=== PATIENT | female | born 1995 | race Caucasian/White ===

== ENCOUNTER 2023-05-25 18:57 | Emergency (ER) | payer MEDICAID ==
[2023-05-25 19:50] LABS: BASOPHILS % (AUTO) 0.4 %; EOSINOPHILS # (AUTO) 0.2 10^3/uL (0.0-0.7); EOSINOPHILS % (AUTO) 4.2 %; HGB - HEMOGLOBIN 12.7 g/dL (12.0-16.0); LYMPHOCYTES # (AUTO) 2.2 10^3/uL (1.5-3.5); LYMPHOCYTES % (AUTO) 39.4 %; MEAN CORPUSCULAR HEMOGLOBIN 28.5 pg (27.0-31.0); MEAN CORPUSCULAR HGB CONC 32.6 g/dL (32.0-36.0); MEAN CORPUSCULAR VOLUME 87.4 fL (81.0-99.0); MEAN PLATELET VOLUME 9.9 fL (7.9-10.8); MONOCYTES # (AUTO) 0.4 10^3/uL (0.0-1.0); MONOCYTES % (AUTO) 6.6 %; NEUTROPHILS # (AUTO) 2.7 10^3/uL (1.5-6.6); NEUTROPHILS % (AUTO) 49.2 %; PLT - PLATELET COUNT 306 10^3/uL (130-450); RED BLOOD COUNT 4.46 10^6/uL (4.20-5.40); RED CELL DISTRIBUTION WIDTH 12.7 % (12.0-15.0); WHITE BLOOD COUNT 5.5 x10^3/uL (4.8-10.8)
[2023-05-25 20:16] LABS: ALBUMIN 4.7 g/dL (3.2-5.5); ALBUMIN/GLOBULIN RATIO 1.5 (1.0-2.2); BILIRUBIN,TOTAL 0.5 mg/dL (0.2-1.0); CALCIUM 9.9 mg/dL (8.5-10.3); CREATININE 0.8 mg/dL (0.6-1.3); POTASSIUM 3.8 mmol/L (3.5-4.5); TOTAL PROTEIN 7.8 g/dL (6.4-8.9)
[2023-05-25] MEDS ORDERED: ONDANSETRON 4 MG/2 ML VIAL IVP STA (21:33)
[2023-05-25] MEDS ORDERED: HYDROmorphone 1 MG/ML CARPUJECT IVP STA (21:33)
[2023-05-25] MEDS ORDERED: SODIUM CHLORIDE 0.9% 1,000 ML IV STA (21:33)
--- NOTE | 2023-05-25 21:37 | ED Physician Documentation ---
PD HPI ABD PAIN - Stated complaint Stated Complaint: SIDE ABD/BACK PX - Chief complaint Chief Complaint: Abd Pain - History obtained from History obtained from: Patient - Additional information Additional information: HPI from patient. patient c/o sharp left flank pain since this morning associated with nausea and vomiting. Pain and n/v are exacerbated with PO intake, no ameliorating factors. Denies h/o similar symptoms. Past surgical history includes , left salpingectomy, and gastric sleeve. Denies fever. Review of Systems Constitutional: denies: Fever, Chills, Sweats Cardiac: reports: Reviewed and negative Respiratory: reports: Reviewed and negative GI: reports: Abdominal Pain, Nausea, Vomiting. denies: Abdominal Swelling, Constipation, Diarrhea, Hematemesis, Bloody / black stool : denies: Dysuria, Frequency, Now [facility] PAST MEDICAL HISTORY - Past Medical History Past Medical History: Yes CLIENT CONSULTANT: Ovarian cysts : Kidney stones - Past Surgical History General: Gastric surgery (gastric sleeve) /CLIENT CONSULTANT: section, Other (salpingectomy) - Present Medications Home Medications: Ambulatory Orders Medication Instructions Recorded Confirmed Ondansetron Odt [Zofran Odt] 4 mg TL Q6H PRN #14 tablet 05/26/23 Tramadol HCl 100 mg PO Q6HR PRN #20 tablet 05/26/23 - Allergies Allergies/Adverse Reactions: Allergies Allergy/AdvReac Type Severity Reaction Status Date / Time adalimumab [From Humira] Allergy Hives Verified 05/25/23 19:08 clindamycin Allergy Anaphylaxis Verified 05/25/23 19:08 etanercept [From Enbrel] Allergy Hives Verified 05/25/23 19:08 Penicillins Allergy Anaphylaxis Verified 05/25/23 19:08 prednisone Allergy Unknown Verified 05/25/23 19:08 - Living Situation Living Arrangement: reports: At home PD ED PE NORMAL - Vitals Vital signs reviewed: Yes - General General: Alert and oriented X 3, No acute distress, Well developed/nourished - HEENT HEENT: Other (tacky/pasty mucous membranes) - Cardiac Cardiac: RRR, No murmur - Respiratory Respiratory: No respiratory distress, Clear bilaterally - Abdomen Abdomen: Soft, Non distended, Other (TTP periumbilical area and left abdomen (LUQ = LLQ), voluntary guarding but no rebound. ) - Back Back: Other (mild left CVAT) - Derm Derm: Normal color, Warm and dry, No rash Results - Vitals Vitals: Oxygen O2 Source Room air - Labs Labs: Laboratory Tests 05/25/23 05/25/23 05/25/23 19:47 19:47 21:40 WBC 5.5 RBC 4.46 Hgb 12.7 Hct 39.0 MCV 87.4 MCH 28.5 MCHC 32.6 RDW 12.7 Plt Count 306 MPV 9.9 Neut # (Auto) 2.7 Lymph # (Auto) 2.2 [place] # (Auto) 0.4 Eos # (Auto) 0.2 Baso # (Auto) 0.0 Absolute Nucleated RBC 0.00 Nucleated RBC % 0.0 Sodium 138 Potassium 3.8 Chloride 105 Carbon Dioxide 29 Anion Gap 4.0 L BUN 13 Creatinine 0.8 Estimated GFR (MDRD) 85 L Glucose 81 Calcium 9.9 Total Bilirubin 0.5 AST 15 ALT 16 Alkaline Phosphatase 36 L Total Protein 7.8 Albumin 4.7 Globulin 3.1 Albumin/Globulin Ratio 1.5 Lipase 25 Urine Color YELLOW Urine Clarity CLEAR Urine pH 6.5 Ur Specific [place] 1.025 Urine Protein NEGATIVE Urine Glucose (UA) NEGATIVE Urine Ketones NEGATIVE Urine Occult Blood NEGATIVE Urine Nitrite NEGATIVE Urine Bilirubin NEGATIVE Urine Urobilinogen 0.2 (NORMAL) Ur Leukocyte Esterase NEGATIVE Ur Microscopic Review NOT INDICATED Urine Culture Comments NOT INDICATED Urine HCG, Qual NEGATIVE - Rads (name of study) CT A/P Relevant Findings:: Prelim report reviewed, See rad report PD Medical Decision Making - ED course Complexity details: reviewed results, re-evaluated patient, considered differential, d/w patient ED course: tests ordered and results reviewed by me: CBC, ER abdominal panel, UA , UHCG, CT A/P. No remarkable findings on blood tests. UA normal, urine HCG negative. CT A/P shows subtle calyceal hyperdensities possibly consistent with RTA (per radiologist's reading). Results d/w patient. Etiology of patient's symptoms is not apparent at this time. Differential diagnoses considered include renal colic, SBO, diverticulitis; no evidence of these diagnoses on CT scan. Pyelonephritis also considered, but no evidence on UA, CT. She is given 1 liter NS bolus and 4mg IV zofran as well as 30mg IV toradol. She voiced desire to avoid narcotic/opiate medications. On reevaluation, she is in NAD, asleep, awakens easily to voice. She reports feeling much improved. Results d/w patient. Return precautions discussed, follow up with PMD recommended (next available appointment). We discussed options for rx for pain control med and upshot of this discussion is rx for tramadol (realizes this is considered an opioid medication but milder effects than most other narcotic/opioid analgesics). She is also provided rx for TL zofran (has liquid zofran at home, but she says this often results in her vomiting the dose back up). I advised her to follow up not only for reevaluation of the symptoms, but also to d/w PMD the finding on CT A/P regarding calcifications in the kidneys. Departure - Departure Disposition: Home, Self Care Clinical Impression: Flank pain Condition: Good Instructions: ED Flank Pain Uncertain Cause Prescriptions: Tramadol HCl 100 mg PO Q6HR PRN #20 tablet PRN Reason: Moderate Pain (Level 4-6) Ondansetron Odt [Zofran Odt] 4 mg TL Q6H PRN #14 tablet PRN Reason: Nausea / Vomiting Comments: There were no concerning or diagnostic findings on the blood tests, urinalysis. There were subtle calcifications in both kidneys; the cause of this finding is not apparent at this time, but this is likely an incidental finding (does not appear to be consistent with kidney stones, would not correlate with the pain you are describing). You should follow-up with your primary care provider, next available appointment, for reevaluation of your symptoms as well as possible further testing regarding the calcifications noted on the CT scan. I have electronically submitted a prescription for tramadol (pain medication) to the [facility] pharmacy in [place]. I have also submitted a prescription for the oral dissolvable tablets of Zofran. I am prescribing a short course of narcotic pain medication for you. These are potentially dangerous and addictive medications that should be used carefully. These medications may constipate you. Take an [id number] stool softener (docusate) twice daily with plenty of water while taking these medications. If you go 24 hours without a bowel movement, take [id number]-[id number] miralax, per package instructions. Do not drink or drive while taking these medications. If you received narcotic or sedating medications while in the emergency department, do not drive for 24 hours. Store this medication in a safe, secure place and out of reach of children. It is a violation of federal law to give or sell this medication to another person or to use in a manner other than prescribed. The ED will not refill narcotic prescriptions, including prescriptions lost or stolen. To dispose of unwanted medications: 1. [facility] at [address] in [place] has a medication drop box. They accept prescription medications (in pill form) Saturday through Saturday 9:00 a.m. to 5:00 p.m. 2. The [facility] [employer] accepts prescription medications (in pill form only) for disposal year round. Call for more information. 3. Contact the [facility] for the next [facility] sponsored prescription drug collection event. , [phone], or [phone]; Forms: PCP List Discharge Date/Time: 05/26/23 04:21
[2023-05-25] MEDS ORDERED: KETOROLAC 30 MG/ML VIAL IVP STA (21:54)
[2023-05-25 21:55] LABS: BILIRUBIN,URINE NEGATIVE (NEGATIVE); GLUCOSE, URINE (UA) NEGATIVE (NEGATIVE); KETONES,URINE (UA) NEGATIVE (NEGATIVE); LEUKOCYTE ESTERASE, URINE NEGATIVE (NEGATIVE); NITRITE,URINE NEGATIVE (NEGATIVE); OCCULT BLOOD,URINE NEGATIVE (NEGATIVE); PH,URINE 6.5 PH (5.0-7.5); PROTEIN,URINE NEGATIVE (NEGATIVE); UROBILINOGEN,URINE 0.2 (NORMAL) E.U./dL (NORMAL)
[2023-05-25 21:56] LABS: CLARITY,URINE CLEAR (CLEAR)
[2023-05-25 21:57] LABS: HCG UR QUAL NEGATIVE
--- NOTE | 2023-05-26 01:11 | CT Report ---
PROCEDURE: ABDOMEN/PELVIS WO INDICATIONS: left flank pain TECHNIQUE: A CT scan of the abdomen and pelvis was performed without the use of intravenous contrast. Images we re recorded and evaluated at appropriate window settings. Reformats: coronal and sagittal. For radiat ion dose reduction, the following was used: automated exposure control, adjustment of mA and/or kV ac cording to patient size. COMPARISON: None. FINDINGS: Image quality: Excellent. Lung bases and heart: Unremarkable. Liver: No solid mass. Gallbladder and biliary tree: Likely surgically absent Spleen: No splenomegaly. Pancreas: No pancreatic ductal dilation. Adrenals: No adrenal nodule. Kidneys and ureters: No hydronephrosis. No renal cystic lesion which requires follow up. No solid mas s. Subtle calyceal hyperdensities may indicate presence of renal tubular acidosis. Bowel and peritoneum: Remote partial gastrectomy. No bowel distension. No pathologic free fluid. Lymph nodes: No central or retroperitoneal adenopathy. Vessels: No infrarenal aortic aneurysm. PELVIS Reproductive organs: Unremarkable. Bladder: No wall thickness, accounting for underdistention. Pelvic lymph nodes: No pelvic adenopathy by size criteria. Bones: No aggressive osseous abnormality. Other: No significant ventral or inguinal hernia. IMPRESSION: 1. No hydronephrosis or obstructing renal stone. 2. Question renal tubular acidosis. 3. No acute abdominal process noted. 4. Remote partial gastrectomy, probable remote cholecystectomy.. Reviewed by: Justo Don MD on 05/26/2023 1:10 AM PDT Approved by: Justo Don MD on 05/26/2023 1:10 AM PDT Station ID: [id number]
[2023-05-26 02:34] VITALS: O2SAT 98
[2023-05-26] MEDS ORDERED: traMADol 50 MG TABLET PO STA (03:36)
[2023-05-26 03:55] VITALS: BP 118/66
== END 2023-05-26 04:21 | disposition home or self-care (01) ==
LOC: ED 18:57
DX: R10.9 Unspecified abdominal pain (principal); Z98.84 Bariatric surgery status
CPT/HCPCS: 36415; 74176; 80053; 81003; 81025; 83690; 85025; 96374; 96375; 99284; A9270; 81001; 87086

== ENCOUNTER 2023-06-10 10:16 | Emergency (ER) | payer MEDICAID ==
[2023-06-10 10:52] LABS: BASOPHILS % (AUTO) 0.5 %; EOSINOPHILS # (AUTO) 0.3 10^3/uL (0.0-0.7); EOSINOPHILS % (AUTO) 6.1 %; HCT - HEMATOCRIT 42.6 % (37.0-47.0); HGB - HEMOGLOBIN 13.8 g/dL (12.0-16.0); LYMPHOCYTES # (AUTO) 1.7 10^3/uL (1.5-3.5); LYMPHOCYTES % (AUTO) 37.6 %; MEAN CORPUSCULAR HEMOGLOBIN 28.9 pg (27.0-31.0); MEAN CORPUSCULAR HGB CONC 32.4 g/dL (32.0-36.0); MEAN CORPUSCULAR VOLUME 89.3 fL (81.0-99.0); MEAN PLATELET VOLUME 10.1 fL (7.9-10.8); MONOCYTES # (AUTO) 0.4 10^3/uL (0.0-1.0); MONOCYTES % (AUTO) 9.1 %; NEUTROPHILS # (AUTO) 2.1 10^3/uL (1.5-6.6); NEUTROPHILS % (AUTO) 46.7 %; PLT - PLATELET COUNT 322 10^3/uL (130-450); RED BLOOD COUNT 4.77 10^6/uL (4.20-5.40); WHITE BLOOD COUNT 4.4 x10^3/uL (4.8-10.8)
[2023-06-10 11:05] LABS: ALBUMIN/GLOBULIN RATIO 1.8 (1.0-2.2); BILIRUBIN,TOTAL 0.7 mg/dL (0.2-1.0); CALCIUM 10.4 mg/dL (8.5-10.3); CREATININE 0.7 mg/dL (0.6-1.3); POTASSIUM 4.1 mmol/L (3.5-4.5); TOTAL PROTEIN 7.8 g/dL (6.4-8.9)
--- NOTE | 2023-06-10 11:44 | ED Physician Documentation ---
PD HPI NVD - Stated complaint Stated Complaint: DEHYDRATION,DIZZY - Chief complaint Chief Complaint: General - History obtained from History obtained from: Patient - History of Present Illness Timing - onset: How many months ago (has had nausea with PO intake, and feeling of not being able to swallow comfortably, upper abd discomfort. She says anything she eats/drinks will lead to emesis without few minutes. Liquids better tolerated than thicker. Does not have large foods as prior gastric sleeve. EGD about 6 months ago.) Timing - details: Gradual onset, Still present, Waxing and waning Associated symptoms: Abdominal pain (intermittently with general abd pain. More often in epigastric area.). No: Fever Contributing factors: Diabetes. No: Sick contact, Bad food Improved by: No: Vomiting Worsened by: Eating Similar symptoms before: No diagnosis (has seen GI back in [facility]. They are moved here to [facility] just in the past month or so. No local PCP as yet.) Recently seen: Emergency Dept (seen 2 weeks ago for lower/left abd pain with labs, UA, and abd/pelvic CT without obvious cause identified. She states she has had poor PO intake with emesis after small amounts for months and had seen GI specialist in [facility], with referral to GI at , but this appt is not until next year.), Other (she states she had been being seen at ER or GI office in [facility] weekly to get IV fluid infusion for hydration. Has not established PCP here and no local GI as yet.) Review of Systems Constitutional: denies: Fever, Chills Nose: denies: Rhinorrhea / runny nose, Congestion Throat: denies: Sore throat Respiratory: denies: Cough GI: reports: Nausea, Vomiting. denies: Diarrhea, Hematemesis, Bloody / black stool : denies: Dysuria, Frequency Neurologic: reports: Generalized weakness, Headache (when stands up the past few days. She feels it is related to dehydration.). denies: Altered mental status PD PAST MEDICAL HISTORY - Past Medical History Past Medical History: Yes Cardiovascular: Hypertension Respiratory: Asthma, Sleep apnea Neuro: Seizure disorder Endocrine/Autoimmune: None GI: Other (gastric sleeve for baritric weight loss 2020 without problems. Had large weight loss as expected. ) SEE WHEELER: Ovarian cysts : Kidney stones HEENT: None Psych: Bipolar disorder, ADD/ADHD Musculoskeletal: None, Rheumatoid arthritis Derm: None - Past Surgical History Past Surgical History: Yes General: Cholecystectomy, Gastric surgery /SEE WHEELER: section, Other - Present Medications Home Medications: Ambulatory Orders Medication Instructions Recorded Confirmed Ondansetron Odt [Zofran Odt] 4 mg TL Q6H PRN #14 tablet 05/26/23 06/10/23 Dextroamphetamine/Amphetamine 10 mg PO BID PRN 06/10/23 06/10/23 [Adderall 20 mg Tablet] Esomeprazole Magnesium [Nexium] 20 mg PO DAILY 30 Days #30 packet 06/10/23 Liraglutide [Victoza 2-Jignesh] 1.8 mg SUBQ DAILY 06/10/23 06/10/23 Metoclopramide [Reglan] 5 mg PO Q6H PRN 06/10/23 06/10/23 Sucralfate [Carafate] 0.5 gm PO ACHS 20 Days #400 ml 06/10/23 - Allergies Allergies/Adverse Reactions: Allergies Allergy/AdvReac Type Severity Reaction Status Date / Time adalimumab [From Humira] Allergy Hives Verified 06/10/23 10:26 adhesive tape Allergy Rash Verified 06/10/23 10:26 clindamycin Allergy Anaphylaxis Verified 06/10/23 10:26 etanercept [From Enbrel] Allergy Hives Verified 06/10/23 10:26 Penicillins Allergy Anaphylaxis Verified 06/10/23 10:26 prednisone Allergy Unknown Verified 06/10/23 10:26 - Social History Does the pt smoke?: No Smoking Status: Former smoker Does the pt drink ETOH?: Yes Does the pt have substance abuse?: Yes Substance Use and Type: Marijuana - Immunizations Immunizations are current?: Yes PD ED PE NORMAL - Vitals Vital signs reviewed: Yes - General General: Alert and oriented X 3, No acute distress, Well developed/nourished - HEENT HEENT: Pharynx benign. No: Moist mucous membranes - Neck Neck: Supple, no meningeal sign, No adenopathy - Cardiac Cardiac: RRR (not tachycardic), No murmur - Respiratory Respiratory: Clear bilaterally - Abdomen Abdomen: Normal bowel sounds, Soft, Non distended, No organomegaly, Other (some tender without guarding epigastric area. ) - Derm Derm: Normal color, Warm and dry - Extremities Extremities: No edema, No calf tenderness / cord, Other (sagging skin on arms and legs/abd c/w large weight loss in the past.) - Neuro Neuro: Alert and oriented X 3, No motor deficit, Normal speech Results - Vitals Vitals: Vital Signs - 24 hr 06/10/23 06/10/23 06/10/23 10:20 11:25 12:19 Temperature 36.4 C L Heart Rate 70 70 60 Respiratory 16 28 H 22 Rate Blood Pressure 123/83 H 100/70 108/65 O2 Saturation 97 100 100 06/10/23 06/10/23 06/10/23 14:12 15:12 17:22 Temperature 36.9 C Heart Rate 61 65 51 L Respiratory 14 17 18 Rate Blood Pressure 106/64 109/75 109/70 O2 Saturation 98 96 100 Oxygen O2 Source Room air - Labs Labs: Laboratory Tests 06/10/23 06/10/23 06/10/23 10:30 10:47 10:47 WBC 4.4 L RBC 4.77 Hgb 13.8 Hct 42.6 MCV 89.3 MCH 28.9 MCHC 32.4 RDW 13.0 Plt Count 322 MPV 10.1 Neut # (Auto) 2.1 Lymph # (Auto) 1.7 [place] # (Auto) 0.4 Eos # (Auto) 0.3 Baso # (Auto) 0.0 Absolute Nucleated RBC 0.00 Nucleated RBC % 0.0 Sodium 140 Potassium 4.1 Chloride 104 Carbon Dioxide 31 Anion Gap 5.0 L BUN 11 Creatinine 0.7 Estimated GFR (MDRD) 99 Glucose 85 POC Whole Bld Glucose 79 Calcium 10.4 H Total Bilirubin 0.7 AST 15 ALT 17 Alkaline Phosphatase 42 Total Protein 7.8 Albumin 5.0 Globulin 2.8 Albumin/Globulin Ratio 1.8 Lipase 22 PD Medical Decision Making - ED course Complexity details: reviewed old records, reviewed results (had abd CT 2 weeks ago for abd pain. Did CT today with intent more of seeing if obstruction. So given sips PO contrast over time and then the CT. At smaller volumes over time, no emesis and she is able to pass fluids into intestines. Gastric sleeve noted. No obstruction per se. ), considered differential, d/w patient ED course: She has PCP and GI back home but is now moved to [facility]. No PCP yet here. Will need to establish. I don't know of getting her to GI at any faster. Consider other GI departments though, such as [facility] or such. She might still get referrals from her PCP in prior home to expedite while getting new provider appts here. Meanwhile consider gastric irritation, ulcer or such as cause of symptoms and can try PPI and carafate. She has Rx for Pantoprazole but only tablet form, so she is not able to take well. Departure - Departure Disposition: 01 Home, Self Care Clinical Impression: H/O gastric sleeve, Dehydration Vomiting Qualifiers: Migraine intractability: intractable Condition: Stable Record reviewed to determine appropriate education?: Yes Instructions: ED Nausea Vomiting Prescriptions: Sucralfate [Carafate] 0.5 gm PO ACHS 20 Days #400 ml Esomeprazole Magnesium [Nexium] 20 mg PO DAILY 30 Days #30 packet Comments: Your CT scan showed the postoperative changes for a gastric sleeve. They did not see the blockage per se. They noted some enlarged lymph nodes throughout the abdomen which is fairly nonspecific. No acute process otherwise. This does not really show us the lining of the stomach or the gastric sleeve or beyond that. In case there is some irritation there that is not allowing comfortable passage of liquids past, I would suggest some acid reducing medicine. The previous prescription for the tablet pantoprazole could be crushed. Alternatively I wrote for a suspension that comes in a packet for the esomeprazole. I did not see a liquid form per se of some of the others. In addition you can coat the stomach and upper intestine with sacral fate several times daily as well. Small frequent fluids and try higher calorie type such as Ensure or protein shakes to get calories along with the volume. I would suggest small frequent fluids through the course of the day so cumulatively more volume. Follow-up with a local GI. Obtain a local primary care. There is a list enclosed. I sent your prescriptions to the [facility]. Forms: PCP List Discharge Date/Time: 06/10/23 17:50
[2023-06-10] MEDS ORDERED: ONDANSETRON 4 MG/2 ML VIAL IVP STA (12:35)
[2023-06-10] MEDS ORDERED: SODIUM CHLORIDE 0.9% 1,000 ML IV STA ×2 (12:35→13:06)
[2023-06-10] MEDS ORDERED: FAMOTIDINE 20 MG/2 ML VIAL IVP STA (12:35)
[2023-06-10] MEDS ORDERED: METOCLOPRAMIDE 10 MG/2 ML VIAL IVP STA (13:06)
[2023-06-10] MEDS ORDERED: DIATR MEGLU/DIATRIZOATE SODIUM 120 ML BOTTLE ONE (13:35)
[2023-06-10] MEDS ORDERED: IOVERSOL 320 100 ML VIAL IVP ONE (15:59)
[2023-06-10] MEDS ORDERED: DIATRIZOATE MEGLU/DIATRIZO SOD 30 ML BOTTLE PO ONE (16:01)
--- NOTE | 2023-06-10 16:50 | CT Report ---
PROCEDURE: ABDOMEN/PELVIS W INDICATIONS: repetitive vomiting with PO intake CONTRAST: 100mL Opti TECHNIQUE: After the administration of intravenous contrast, 5 mm thick sections acquired from the diaphragms to the symphysis. 5 mm thick coronal and sagittal reformats were acquired. For radiation dose reducti on, the following was used: automated exposure control, adjustment of mA and/or kV according to meredith ent size. COMPARISON: 05/26/2023 FINDINGS: Image quality: Excellent. Lung bases and heart: Unremarkable. Liver: No solid mass. Gallbladder and biliary tree: Gallbladder is not seen. No biliary ductal dilatation is present. Spleen: No splenomegaly. Pancreas: No pancreatic ductal dilation. Adrenals: No adrenal nodule. Kidneys and ureters: No hydronephrosis. No renal cystic lesion which requires follow up. No solid mas s. Bowel and peritoneum: Surgical clips along the greater curvature of the stomach. No bowel distension. No pathologic free fluid. Appendix is not seen. No evidence of appendicitis. Lymph nodes: No central or retroperitoneal adenopathy. Multiple mildly prominent mesenteric lymph nod es are present, predominantly within the right lower quadrant. Vessels: No infrarenal aortic aneurysm. PELVIS Reproductive organs: Unremarkable. Bladder: No abnormal wall thickening, accounting for underdistension. Pelvic lymph nodes: No pelvic adenopathy by size criteria. Bones: No aggressive osseous abnormality. Other: No significant ventral or inguinal hernia. IMPRESSION: 1. Findings suggestive of mesenteric adenitis. 2. Appendix not seen. No evidence of appendicitis. 3. Postsurgical sequelae. Reviewed by: Uli Grant MD on 06/10/2023 4:49 PM PDT Approved by: Uli Grant MD on 06/10/2023 4:49 PM PDT Station ID: [id number]
[2023-06-10 17:27] VITALS: BP 109/70; O2SAT 100
== END 2023-06-10 17:50 | disposition home or self-care (01) ==
LOC: ED 10:16
DX: E86.0 Dehydration (principal); Z98.84 Bariatric surgery status; I10 Essential (primary) hypertension; Z87.891 Personal history of nicotine dependence; Z79.899 Other long term (current) drug therapy
CPT/HCPCS: 36415; 80053; 83690; 85025; 96361; 96374; 96375; 99283

== ENCOUNTER 2023-08-08 19:13 | Emergency (ER) | payer MEDICAID ==
[2023-08-08 19:23] VITALS: BP 122/64; O2SAT 100
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
--- NOTE | 2023-08-08 20:03 | XRAY Report ---
PROCEDURE: Hand 3 View RT INDICATIONS: Trauma TECHNIQUE: 3" views of the hand(s) acquired. COMPARISON: None. FINDINGS: Bones: No fractures or dislocations. No suspicious bony lesions. Soft tissues: No suspicious soft tissue calcifications or masses. IMPRESSION: No acute right hip fracture or dislocation. No signs of healing fracture. Reviewed by: Ector Hanna MD on 08/08/2023 8:02 PM [facility] Approved by: Ector Hanna MD on 08/08/2023 8:02 PM [facility] Station ID: [id number]
== END 2023-08-08 20:26 | disposition home or self-care (01) ==
LOC: ED 19:13
DX: S60.221A Contusion of right hand, initial encounter (principal); W22.8XXA Striking against or struck by other objects, initial encounter; I10 Essential (primary) hypertension
CPT/HCPCS: 99283

== ENCOUNTER 2024-03-31 19:30 | Emergency (ER) | payer MEDICAID ==
--- NOTE | 2024-03-31 19:51 | ED Physician Documentation ---
PD HPI ABD PAIN - Stated complaint Stated Complaint: ABD PX - Chief complaint Chief Complaint: Abd Pain - History obtained from History obtained from: Patient - Additional information Additional information: She had her gallbladder out remotely, also a couple of laparoscopies for ovarian cysts. 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 For the last 2 days she has had right upper quadrant pain radiating to the back. It is unclear if her nausea level is higher than her chronic nausea. No changes in bowel movements. It worsens if she is upright. Does not change if she eats. She is not short of breath with it. 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: Ovarian cysts : Kidney stones HEENT: None Psych: Bipolar disorder, ADD/ADHD Musculoskeletal: None, Rheumatoid arthritis Derm: None - Past Surgical History Past Surgical History: Yes General: Cholecystectomy, Gastric surgery /EXAMINING CHAIR ASSEMBLER: section, Other - Present Medications Home Medications: Ambulatory Orders Medication Instructions Recorded Confirmed Ondansetron Odt [Zofran Odt] 4 mg TL Q6H PRN #14 tablet 05/26/23 06/10/23 Dextroamphetamine/Amphetamine 10 mg PO BID PRN 06/10/23 06/10/23 [Adderall 20 mg Tablet] Esomeprazole Magnesium [Nexium] 20 mg PO DAILY 30 Days #30 packet 06/10/23 Liraglutide [Victoza 2-Jignesh] 1.8 mg SUBQ DAILY 06/10/23 06/10/23 Metoclopramide [Reglan] 5 mg PO Q6H PRN 06/10/23 06/10/23 Sucralfate [Carafate] 0.5 gm PO ACHS 20 Days #400 ml 06/10/23 Hyoscyamine [Levsin] 0.125 mg SL AC #40 tablet 03/31/24 - Allergies Allergies/Adverse Reactions: Allergies Allergy/AdvReac Type Severity Reaction Status Date / Time adalimumab [From Humira] Allergy Hives Verified 03/31/24 19:40 adhesive tape Allergy Rash Verified 03/31/24 19:40 clindamycin Allergy Anaphylaxis Verified 03/31/24 19:40 etanercept [From Enbrel] Allergy Hives Verified 03/31/24 19:40 Penicillins Allergy Anaphylaxis Verified 03/31/24 19:40 prednisone Allergy Unknown Verified 03/31/24 19:40 - Social History Does the pt smoke?: No Smoking Status: Never smoker Does the pt drink ETOH?: Yes Does the pt have substance abuse?: Yes - Immunizations Immunizations are current?: Yes PD ED PE NORMAL - Vitals Vital signs reviewed: Yes - General General: Alert and oriented X 3, No acute distress - Cardiac Cardiac: RRR, No murmur - Respiratory Respiratory: No respiratory distress, Clear bilaterally - Abdomen Abdomen: Other (She is tender in the right upper quadrant without surgical signs) - Neuro Neuro: Alert and oriented X 3, Normal speech Results - Vitals Vitals: Vital Signs - 24 hr 03/31/24 03/31/24 03/31/24 19:38 19:41 21:27 Temperature 36.6 C Heart Rate 77 72 68 Respiratory 18 18 Rate Blood Pressure 121/68 125/66 O2 Saturation 99 97 Oxygen O2 Source Room air - Labs Labs: Laboratory Tests 03/31/24 03/31/24 03/31/24 19:47 19:47 19:47 WBC 4.4 L RBC 4.28 Hgb 12.6 Hct 38.5 MCV 90.0 MCH 29.4 MCHC 32.7 RDW 12.3 Plt Count 289 MPV 9.4 Neut # (Auto) 2.1 Lymph # (Auto) 1.8 [place] # (Auto) 0.4 Eos # (Auto) 0.2 Baso # (Auto) 0.0 Absolute Nucleated RBC 0.00 Nucleated RBC % 0.0 Sodium 137 Potassium 3.7 Chloride 103 Carbon Dioxide 30 Anion Gap 4.0 L BUN 13 Creatinine 0.7 Estimated GFR (MDRD) 98 Glucose 89 Calcium 9.9 Total Bilirubin 0.5 AST 20 ALT 31 Alkaline Phosphatase 51 Total Protein 8.0 Albumin 4.8 Globulin 3.2 Albumin/Globulin Ratio 1.5 Lipase 28 Urine Color YELLOW Urine Clarity CLEAR Urine pH 7.5 Ur Specific [place] 1.020 Urine Protein NEGATIVE Urine Glucose (UA) NEGATIVE Urine Ketones NEGATIVE Urine Occult Blood NEGATIVE Urine Nitrite NEGATIVE Urine Bilirubin NEGATIVE Urine Urobilinogen 0.2 (NORMAL) Ur Leukocyte Esterase NEGATIVE Urine RBC None Seen Urine WBC 0-3 Ur Squamous Epith Cells FEW Squamous Urine Bacteria Rare Urine Culture Comments NOT INDICATED Urine HCG, Qual NEGATIVE - Rads (name of study) CT of the abdomen pelvis demonstrates hepatomegaly and heterogenous appearance. She has a known fatty liver. And possible colitis. Relevant Findings:: Final report received, EMP independent interpretation of test PD Medical Decision Making - ED course ED course: She presents with right upper quadrant pain status post remote cholecystectomy and other abdominal surgeries including gastric sleeve and ovarian surgeries. Workup in the emergency department demonstrates unremarkable CBC, CMP, urinalysis and test. She had a CT of the abdomen pelvis demonstrating heterogenous liver and she has known fatty liver disease and she has no elevation in her liver enzymes so I do not think this is acute. She does have possible colitis for which we will trial Levsin. Departure - Departure Disposition: Home, Self Care Clinical Impression: Colitis Condition: Good Record reviewed to determine appropriate education?: Yes Instructions: Diet Low Residue Prescriptions: Hyoscyamine [Levsin] 0.125 mg SL AC #40 tablet Comments: I suspect you will improve on your own, I would do the low residue diet, see attached instructions. Return if worse and follow-up with your doctor in a week regardless. I sent the prescription electronically to [facility] in [place]. You can take it as needed for colonic spasms. Forms: PCP List
[2024-03-31 19:52] LABS: BASOPHILS % (AUTO) 0.5 %; EOSINOPHILS # (AUTO) 0.2 10^3/uL (0.0-0.7); EOSINOPHILS % (AUTO) 3.8 %; HCT - HEMATOCRIT 38.5 % (37.0-47.0); HGB - HEMOGLOBIN 12.6 g/dL (12.0-16.0); LYMPHOCYTES # (AUTO) 1.8 10^3/uL (1.5-3.5); LYMPHOCYTES % (AUTO) 40.3 %; MEAN CORPUSCULAR HEMOGLOBIN 29.4 pg (27.0-31.0); MEAN CORPUSCULAR HGB CONC 32.7 g/dL (32.0-36.0); MEAN PLATELET VOLUME 9.4 fL (7.9-10.8); MONOCYTES # (AUTO) 0.4 10^3/uL (0.0-1.0); MONOCYTES % (AUTO) 7.9 %; NEUTROPHILS # (AUTO) 2.1 10^3/uL (1.5-6.6); NEUTROPHILS % (AUTO) 47.3 %; PLT - PLATELET COUNT 289 10^3/uL (130-450); RED BLOOD COUNT 4.28 10^6/uL (4.20-5.40); RED CELL DISTRIBUTION WIDTH 12.3 % (12.0-15.0); WHITE BLOOD COUNT 4.4 x10^3/uL (4.8-10.8)
[2024-03-31 19:54] LABS: BILIRUBIN,URINE NEGATIVE (NEGATIVE); GLUCOSE, URINE (UA) NEGATIVE (NEGATIVE); KETONES,URINE (UA) NEGATIVE (NEGATIVE); LEUKOCYTE ESTERASE, URINE NEGATIVE (NEGATIVE); NITRITE,URINE NEGATIVE (NEGATIVE); OCCULT BLOOD,URINE NEGATIVE (NEGATIVE); PH,URINE 7.5 PH (5.0-7.5); PROTEIN,URINE NEGATIVE (NEGATIVE); UROBILINOGEN,URINE 0.2 (NORMAL) E.U./dL (NORMAL)
[2024-03-31 19:56] LABS: CLARITY,URINE CLEAR (CLEAR); HCG UR QUAL NEGATIVE
[2024-03-31] MEDS: ONDANSETRON 4 MG/2 ML VIAL IVP STA (20:03)
[2024-03-31] MEDS: KETOROLAC 15 MG/ML VIAL IVP STA (20:03)
[2024-03-31 20:04] LABS: BACTERIA,URINE Rare /HPF (None Seen); RBC,URINE None Seen /HPF (0-5); SQUAMOUS EPITHELIAL CELL,UR FEW Squamous (<= Few); WBC,URINE 0-3 /HPF (0-5)
[2024-03-31 20:05] LABS: ALBUMIN 4.8 g/dL (3.2-5.5); ALBUMIN/GLOBULIN RATIO 1.5 (1.0-2.2); BILIRUBIN,TOTAL 0.5 mg/dL (0.2-1.0); CALCIUM 9.9 mg/dL (8.5-10.3); CREATININE 0.7 mg/dL (0.6-1.3); POTASSIUM 3.7 mmol/L (3.5-4.5)
[2024-03-31] MEDS ORDERED: iohexoL-300 100 ML VIAL ONE (20:34)
--- NOTE | 2024-03-31 21:21 | CT Report ---
PROCEDURE: Abdomen/Pelvis W INDICATIONS: Right upper quadrant pain, IV only CONTRAST: 100ml [id number] TECHNIQUE: After the administration of intravenous contrast, a CT scan of the abdomen and pelvis was performed. Images were recorded and evaluated at appropriate window settings. Reformats: coronal and sagittal. F or radiation dose reduction, the following was used: automated exposure control, adjustment of mA and /or kV according to patient size. COMPARISON: 06/10/2023 FINDINGS: Image quality: Diagnostic Lower chest: A right lower lobe nodule is again seen measuring 5 to 6 mm. Patient does not meet Fleis chner follow-up guidelines criteria. No pleural effusions. Normal heart size Liver: Heterogeneous appearance of the liver. Hepatomegaly at about 19 cm. Subtle hypervascular lesio n segment 6 measuring 6 mm. Gallbladder and biliary system: Gallbladder is not seen. No pathologic biliary ductal dilation allowi ng for postsurgical state, CBD measures 6 to 7 mm Pancreas: No ductal dilation Spleen: Nonenlarged Adrenals: No discrete nodules Kidneys: No solid mass or hydronephrosis. Subcentimeter lesions are too small characterize, usually c ysts. Vessels and lymph nodes: No abdominal aortic aneurysm. The main portal vein is patent. There are prom inent upper abdominal lymph nodes, nonspecific and possibly reactive. Bowel and peritoneum: Gastric postsurgical changes. No small bowel obstruction. No pathologic ascites or drainable abscess. There is mild mid and distal colonic wall thickening. Possible appendix is par tially seen, nondilated Body wall: Unremarkable Pelvis: Bladder is unremarkable. Reproductive organs are unremarkable on limited CT evaluation, consi yanet ultrasound if there is further concern. Bones: No acute or suspicious osseous finding. Degenerative changes are present. IMPRESSION: Hepatomegaly and heterogeneous appearance of the liver, nonspecific on CT, correlate with LFTs. Diffe rential includes hepatitis. Gallbladder is not seen. Prominent CBD measuring 6 to 7 mm may be secondary to postsurgical state Mild mid and distal colonic wall thickening, nonspecific, possibly colitis Other findings above. Reviewed by: Jericho Morales MD on 03/31/2024 9:20 PM PDT Approved by: Jericho Morales MD on 03/31/2024 9:20 PM PDT Station ID: [id number]
[2024-03-31 21:34] VITALS: BP 125/66; O2SAT 97
[2024-03-31] MEDS: HYOSCYAMINE SL 0.125 MG TABLET SL STA (21:54)
[2024-03-31] MEDS: iohexoL-300 100 ML VIAL IVP ONE (22:14)
== END 2024-03-31 21:56 | disposition home or self-care (01) ==
LOC: ED 19:30
DX: K52.9 Noninfective gastroenteritis and colitis, unspecified (principal); I10 Essential (primary) hypertension; G47.30 Sleep apnea, unspecified; J45.909 Unspecified asthma, uncomplicated; M06.9 Rheumatoid arthritis, unspecified; Z87.442 Personal history of urinary calculi; Z79.899 Other long term (current) drug therapy
CPT/HCPCS: 36415; 74177; 80053; 81001; 81025; 83690; 85025; 96374; 96375; 99284; A9270; Q9967; 87086

== ENCOUNTER 2024-05-26 12:18 | Emergency (ER) | payer MEDICAID ==
--- NOTE | 2024-05-26 12:52 | ED Physician Documentation ---
History of Present Illness - Stated complaint Stated Complaint: LT KNEE PX - Chief complaint Chief Complaint: Ext Problem - Additonal information Additional information: Patient is a 28-year-old female presenting with left knee pain. Symptoms have been going on for approximately 1 day. She notes last night she was standing on her bed when she missed stepped and rolled her knee inward. She notes severe pain since then. She has been able to bear weight and walk on it but has severe pain with moving her knee in and out. She denies taking anything for symptoms. She has no previous surgeries to this knee. She notes a few months ago she injured it similarly and it took multiple months for it to heal. She notes no swelling no bruising associated with her symptoms. No hip pain or ankle pain. 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: Ovarian cysts : Kidney stones HEENT: None Psych: Bipolar disorder, ADD/ADHD Musculoskeletal: None, Rheumatoid arthritis Derm: None - Past Surgical History Past Surgical History: Yes General: Cholecystectomy, Gastric surgery /PHOTOTYPESETTER OPERATOR: section, Other - Present Medications Home Medications: Ambulatory Orders Medication Instructions Recorded Confirmed Ondansetron Odt [Zofran Odt] 4 mg TL Q6H PRN #14 tablet 05/26/23 06/10/23 Dextroamphetamine/Amphetamine 10 mg PO BID PRN 06/10/23 06/10/23 [Adderall 20 mg Tablet] Esomeprazole Magnesium [Nexium] 20 mg PO DAILY 30 Days #30 packet 06/10/23 Liraglutide [Victoza 2-Jignesh] 1.8 mg SUBQ DAILY 06/10/23 06/10/23 Metoclopramide [Reglan] 5 mg PO Q6H PRN 06/10/23 06/10/23 Sucralfate [Carafate] 0.5 gm PO ACHS 20 Days #400 ml 06/10/23 Hyoscyamine [Levsin] 0.125 mg SL AC #40 tablet 03/31/24 - Allergies Allergies/Adverse Reactions: Allergies Allergy/AdvReac Type Severity Reaction Status Date / Time adalimumab [From Humira] Allergy Hives Verified 05/26/24 12:36 adhesive tape Allergy Rash Verified 05/26/24 12:36 clindamycin Allergy Anaphylaxis Verified 05/26/24 12:36 etanercept [From Enbrel] Allergy Hives Verified 05/26/24 12:36 Penicillins Allergy Anaphylaxis Verified 05/26/24 12:36 prednisone Allergy Unknown Verified 05/26/24 12:36 - Social History Does the pt smoke?: No Smoking Status: Never smoker Does the pt drink ETOH?: Yes Does the pt have substance abuse?: Yes Substance Use and Type: Marijuana - Immunizations Immunizations are current?: Yes - POLST Patient has POLST: No PD ED PE NORMAL - Vitals Vital signs reviewed: Yes - General General: Alert and oriented X 3 - HEENT HEENT: Atraumatic - Neck Neck: Supple, no meningeal sign - Cardiac Cardiac: RRR, No murmur, No gallop, No rub - Respiratory Respiratory: No respiratory distress, Clear bilaterally - Extremities Extremities: No deformity, No edema, Other - Free text exam Free text exam: Left Knee: No significant swelling appreciated to left knee mild laxity noted on examination of knee reproducible pain with passive range of motion on flexion of the left knee. Patellar tendon and quadriceps tendon intact. No boggy patella appreciated. Negative anterior and posterior drawer test. Results - Vitals Vitals: Vital Signs - 24 hr 05/26/24 12:32 Temperature 36.7 C Heart Rate 68 Respiratory 20 Rate Blood Pressure 125/67 O2 Saturation 98 Oxygen O2 Source Room air - Rads (name of study) left knee X-ray Relevant Findings:: EMP independent interpretation of test PD Medical Decision Making - ED course Complexity details: reviewed results ED course: Patient is a 28-year-old female presenting to the emergency department with left knee pain after standing out of bed yesterday and twisting her left knee. She notes she has been able to walk on it but pain worsens with inversion eversion of her knee and ankle. She denies any pain to her ankle and has full range of motion. Passive range of motion noted on left knee on examination. Mild laxity noted on examination. No obvious swelling no obvious deformity no appreciable ecchymosis on examination. Patient has DP and PT pulses 2+ intact. Good capillary refill noted distally. X-rays obtained of left knee and emergency department for further evaluation. No acute bony abnormality. If pain persists with conservative management, consider repeat x-ray in 10-14 days or cross-sectional imaging. Patient's x-rays are reassuring showing no acute fracture or effusion. Discussed with patient remaining on left knee for about a week to see if pain improves as symptoms most likely secondary to a sprain however if pain persists or she develops worsening swelling she will require follow-up with her primary care doctor in about a week she may require further imaging. Patient understands and is agreeable with this plan. She is instructed to take ibuprofen 800 mg every 8 hours to ensure resolution of symptoms.Patient instructed to return to the emergency department with any worsening swelling severe pain numbness or tingling in her legs. Patient understands and is agreeable with this plan. Departure - Departure Disposition: 01 Home, Self Care Clinical Impression: Left knee sprain Condition: Good Instructions: ED Sprain Knee Comments: You are seen here in the emergency department for your left knee pain your workup here showed normal x-ray findings. Symptoms most likely secondary to a sprain/strain. Remain off the knee for about a week with the crutches I have given you. You can wear a knee immobilizer to help with stability if you develop any worsening swelling or severe pain to your knee you can return to the emergency department. If pain persist after about a week you should follow-up with your PCP for further evaluation you may require an MRI for further imaging. You can take ibuprofen 800 mg every 8 hours for pain control elevate, rest, and ice. Forms: PCP List
--- NOTE | 2024-05-26 13:10 | XRAY Report ---
PROCEDURE: Knee 4+V LT INDICATIONS: left knee pain and swelling TECHNIQUE: 4 views of the knee(s) were acquired. COMPARISON: None. FINDINGS: Bones: No fractures or dislocations. Mild degenerative changes of the knee with osteophytosis and ann-marie int space narrowing of the medial and lateral compartments. No suspicious bony lesions. Soft tissues: No knee joint effusion. No suspicious soft tissue calcifications or masses. IMPRESSION: No acute bony abnormality. If pain persists with conservative management, consider repeat x-ray in 10 -14 days or cross-sectional imaging. Reviewed by: Sacha Estrella MD on 05/26/2024 1:08 PM PDT Approved by: Sacha Estrella MD on 05/26/2024 1:08 PM PDT Station ID: [id number]
[2024-05-26] MEDS: IBUPROFEN 800 MG TABLET PO STA (13:26)
[2024-05-26 13:54] VITALS: BP 128/59; O2SAT 100
== END 2024-05-26 13:49 | disposition home or self-care (01) ==
LOC: ED 12:18
DX: S83.92XA Sprain of unspecified site of left knee, initial encounter (principal); X50.1XXA Overexertion from prolonged static or awkward postures, initial encounter; Y92.003 Bedroom of unspecified non-institutional (private) residence as the place of occurrence of the external cause; I10 Essential (primary) hypertension; J45.909 Unspecified asthma, uncomplicated; G47.30 Sleep apnea, unspecified; M06.9 Rheumatoid arthritis, unspecified; Z87.442 Personal history of urinary calculi; Z98.84 Bariatric surgery status; Z79.899 Other long term (current) drug therapy
CPT/HCPCS: 99283